=== PATIENT | male | born 1955 | race Caucasian/White ===

== ENCOUNTER 2023-09-22 16:00 | Outpatient (CLI) | payer MEDICARE | END 2023-09-22 16:01 | disposition home or self-care (01) | LOC: SLEEPLAB 16:00 | DX: G47.33 Obstructive sleep apnea (adult) (pediatric) (principal); R53.83 Other fatigue; E66.9 Obesity, unspecified; R06.83 Snoring; I10 Essential (primary) hypertension; Z68.42 Body mass index [BMI] 45.0-49.9, adult | CPT/HCPCS: 95810 ==

== ENCOUNTER 2023-10-22 17:00 | Outpatient (CLI) | payer MEDICARE | END 2023-10-22 17:01 | disposition home or self-care (01) | LOC: SLEEPLAB 17:00 | DX: G47.33 Obstructive sleep apnea (adult) (pediatric) (principal); R53.83 Other fatigue; R06.83 Snoring; I10 Essential (primary) hypertension; Z68.42 Body mass index [BMI] 45.0-49.9, adult; G47.61 Periodic limb movement disorder | CPT/HCPCS: 95811 ==